=== PATIENT | female | born 1955 | race African-American/Black ===

== ENCOUNTER 2017-10-31 18:55 | Emergency (ER) | payer OTHER ==
[~2017-10-31] VITALS: Ht 157.5 cm; Wt 99.8 kg
[2017-10-31 23:03] VITALS: BP 137/79
== END 2017-10-31 23:07 | disposition home or self-care (01) ==
LOC: EDBD 18:55 → ER 19:00
DX: S30.0XXA Contusion of lower back and pelvis, initial encounter (principal); S09.90XA Unspecified injury of head, initial encounter; E11.9 Type 2 diabetes mellitus without complications; E78.5 Hyperlipidemia, unspecified; I10 Essential (primary) hypertension; E66.01 Morbid (severe) obesity due to excess calories; Z68.41 Body mass index [BMI] 40.0-44.9, adult; V80.010A Animal-rider injured by fall from or being thrown from horse in noncollision accident, initial encounter; Y93.52 Activity, horseback riding; Y99.8 Other external cause status; Y92.89 Other specified places as the place of occurrence of the external cause
CPT/HCPCS: 70450; 73502; 93005

== ENCOUNTER 2021-06-13 10:39 | Inpatient (IN) | payer OTHER ==
[~2021-06-13] VITALS: Ht 154.9 cm; Wt 100.9 kg
[2021-06-13] MEDS ORDERED: ASPirin 81 mg TAB PO ONE ×2 (11:15→20:15)
[2021-06-13 11:55] LABS: Basophils % (auto) 0.4 % (0.0-2.0); Eosinophils # (auto) 0 10 ^3/uL (0-0.8); Neutrophils # (auto) 10.3 10 ^3/uL (1.6-8.6)
[2021-06-13 11:57] LABS: Basophils # (auto) 0.1 10 ^3/uL (0-0.2); Eosinophils % (auto) 0.1 % (0.0-7.0); Hematocrit 31.3 % (36.0-46.0); Hemoglobin 10.3 g/dL (12.2-16.2); Lymphocytes % (auto) 7.9 % (10.0-50.0); Mean Corpuscular Hemoglobin 26.7 pg (28.0-32.0); Mean Corpuscular Hgb Conc. 32.8 g/dL (32.0-36.0); Mean Corpuscular Volume 81.5 fL (80.0-100.0); Monocytes # (auto) 1.3 10 ^3/uL (0-1.3); Monocytes % (auto) 10.2 % (0.0-12.0); Neutrophils % (auto) 81.4 % (37.0-80.0); Red Blood Cells 3.83 10^6/uL (4.0-5.20); Red Cell Distribution Width 18.5 % (11.8-14.3); White Blood Cell 12.6 10^3/uL (4.4-10.8)
[2021-06-13 12:16] LABS: Albumin 2.6 g/dL (3.4-5.0); Calcium 8.8 mg/dL (8.5-10.1); Potassium 4.8 mmol/L (3.5-5.1)
[2021-06-13 12:21] LABS: BUN/Creatinine Ratio 21.4; Bilirubin, Total 0.9 mg/dL (0.2-1.0); Total Protein 8.4 g/dL (6.4-8.2)
[2021-06-13] MEDS ORDERED: MORPHINE SULFATE 4 MG/ML SYR/VIAL IV ONE (13:30)
[2021-06-13] MEDS ORDERED: NITROGLYCERIN 0.4 MG SL TAB SL ONE (13:30)
[2021-06-13] MEDS ORDERED: ONDANSETRON HCL 4 MG/2 ML VIAL IV ONE (13:30)
[2021-06-13] MEDS ORDERED: NITROGLYCERIN 0.4 MG SL TAB SL PRN ×2 (16:30→20:15)
[2021-06-13] MEDS ORDERED: SODIUM CHLORIDE 0.9% 1,000 ML IV SCH (17:30)
[2021-06-13] MEDS ORDERED: ENOXAPARIN SOD 100 MG/1 ML SYRINGE SC ONE (17:30)
[2021-06-13] MEDS: MORPHINE SULFATE INJECTION 2 MG/ML SYRG IV PRN (18:27)
[2021-06-13] MEDS ORDERED: LORazepam 0.5 MG TAB PO PRN (20:15)
[2021-06-13] MEDS ORDERED: levoFLOXacin 500MG 100 ML IV ONE (20:15)
[2021-06-13] MEDS ORDERED: MORPHINE SULFATE INJECTION 2 MG/ML SYRG IV PRN (20:15)
[2021-06-13] MEDS ORDERED: ACETAMINOPHEN 325 MG TAB PO PRN (20:15)
[2021-06-13] MEDS ORDERED: ATORVASTATIN 20 MG TAB PO ONE (20:15)
[2021-06-13] MEDS ORDERED: DEXTROSE (50%) 50ML SYRG IV PRN (20:15)
[2021-06-13] MEDS ORDERED: METOCLOPRAMIDE HCL 5MG/ml INJ 2ml VIAL IV PRN ×2 (20:15→20:30)
[2021-06-13] MEDS ORDERED: FAMOTIDINE (10MG/ML) 2ML VL IV ONE (20:15)
[2021-06-13] MEDS ORDERED: METOPROLOL SUCCINATE XL 50 MG TAB PO ONE (20:15)
[2021-06-13] MEDS ORDERED: metroNIDAZOLE 500MG/100ML 100 ML IV ONE ×2 (20:15→22:45)
[2021-06-13] MEDS ORDERED: DOCUSATE SOD 100 MG CAP PO PRN (20:15)
[2021-06-13 20:50] LABS: INR 1.27 (0.9-1.15); Partial Thromboplastin Time 32.8 sec (23.6-33.0)
[2021-06-13 20:59] VITALS: BP 105/69
[2021-06-13 22:00] VITALS: BP 105/69
[2021-06-13] MEDS: hydrALAZINE HCL 10 MG TAB PO SCH (22:00)
[2021-06-13] MEDS: ISOSORBIDE MONONITRATE 20 MG TAB PO SCH (22:00)
[2021-06-13] MEDS: ACCU-CHEK COMFORT CURVE STRIP VI SCH (22:00)
[2021-06-13] MEDS: InsuLIN REG 1unit/0.01ml Soln (100units/ml) SC SCH (22:00)
[2021-06-14 04:54] VITALS: BP 95/57
[2021-06-14] MEDS: metroNIDAZOLE 500MG/100ML 100 ML IV SCH ×2 (06:00→14:00)
[2021-06-14] MEDS: hydrALAZINE HCL 10 MG TAB PO SCH ×2 (06:00→14:00)
[2021-06-14] MEDS ORDERED: BUMETANIDE 2.5mg/10ml (0.25 mg/ml) INJ IV SCH (06:00)
[2021-06-14 06:36] LABS: Basophils # (auto) 0.1 10 ^3/uL (0-0.2); Basophils % (auto) 0.5 % (0.0-2.0); Eosinophils # (auto) 0 10 ^3/uL (0-0.8); Hemoglobin 9.4 g/dL (12.2-16.2); Mean Corpuscular Hgb Conc. 32.1 g/dL (32.0-36.0); Neutrophils # (auto) 7.8 10 ^3/uL (1.6-8.6)
[2021-06-14 06:39] LABS: Eosinophils % (auto) 0.4 % (0.0-7.0); Hematocrit 29.3 % (36.0-46.0); Lymphocytes # (auto) 1.1 10 ^3/uL (0.4-5.4); Lymphocytes % (auto) 10.8 % (10.0-50.0); Mean Corpuscular Hemoglobin 26.7 pg (28.0-32.0); Monocytes # (auto) 1.2 10 ^3/uL (0-1.3); Neutrophils % (auto) 76.3 % (37.0-80.0); Nucleated Red Blood Cells % 0.1 %; Red Blood Cells 3.53 10^6/uL (4.0-5.20); Red Cell Distribution Width 18.7 % (11.8-14.3); White Blood Cell 10.3 10^3/uL (4.4-10.8)
[2021-06-14 06:47] LABS: Albumin 2.3 g/dL (3.4-5.0); Calcium 8.3 mg/dL (8.5-10.1); Magnesium 3.1 mg/dL (1.6-2.6); Potassium 5.3 mmol/L (3.5-5.1)
[2021-06-14 06:54] LABS: INR 1.3 (0.9-1.15); Partial Thromboplastin Time 35.9 sec (23.6-33.0)
[2021-06-14 06:56] LABS: BUN/Creatinine Ratio 25.2; Bilirubin, Total 0.9 mg/dL (0.2-1.0); Phosphorus 4.5 mg/dL (2.5-4.90); Total Protein 7.3 g/dL (6.4-8.2); Uric Acid 11.3 mg/dL (2.6-6.0)
[2021-06-14] MEDS: InsuLIN REG 1unit/0.01ml Soln (100units/ml) SC SCH ×4 (07:00→22:19)
[2021-06-14] MEDS: ACCU-CHEK COMFORT CURVE STRIP VI SCH ×3 (07:00→17:00)
[2021-06-14] MEDS: MORPHINE SULFATE INJECTION 2 MG/ML SYRG IV PRN ×2 (09:57→19:33)
[2021-06-14] MEDS ORDERED: ASPirin 81 mg TAB PO SCH (10:00)
[2021-06-14] MEDS ORDERED: CLOPIDOGREL BISULFATE 75 MG TAB PO ONE (10:15)
[2021-06-14] MEDS ORDERED: SODIUM CHLORIDE 0.9% 1,000 ML IV SCH (10:15)
[2021-06-14] MEDS: FAMOTIDINE (10MG/ML) 2ML VL IV SCH (10:40)
[2021-06-14] MEDS: levoFLOXacin 500MG 100 ML IV SCH (10:40)
[2021-06-14] MEDS: METOPROLOL SUCCINATE XL 50 MG TAB PO SCH (10:40)
[2021-06-14] MEDS: ISOSORBIDE MONONITRATE 20 MG TAB PO SCH ×2 (10:40→22:00)
[2021-06-14] MEDS ORDERED: IOHEXOL 350 MG/ML 100ML IJ ONE (15:14)
[2021-06-14 17:17] VITALS: BP 96/62
[2021-06-14] MEDS ORDERED: LORazepam 2MG/ML-1ML VIAL IV PRN (17:45)
[2021-06-14 21:35] VITALS: BP 98/58
[2021-06-14] MEDS: GABAPENTIN 100 MG CAP PO SCH (22:00)
[2021-06-14] MEDS: ATORVASTATIN 20 MG TAB PO SCH (22:00)
[2021-06-15] MEDS: MORPHINE SULFATE INJECTION 2 MG/ML SYRG IV PRN ×8 (02:29→15:15)
[2021-06-15] MEDS: hydrALAZINE HCL 10 MG TAB PO SCH ×4 (03:18→22:00)
[2021-06-15 04:52] VITALS: BP 111/63
[2021-06-15] MEDS: ACCU-CHEK COMFORT CURVE STRIP VI SCH ×4 (07:00→21:23)
[2021-06-15] MEDS: InsuLIN REG 1unit/0.01ml Soln (100units/ml) SC SCH ×4 (07:00→21:20)
[2021-06-15] MEDS: GABAPENTIN 100 MG CAP PO SCH ×3 (07:01→21:22)
[2021-06-15 07:21] LABS: Hematocrit 29.6 % (36.0-46.0); Hemoglobin 9.2 g/dL (12.2-16.2); Mean Corpuscular Hemoglobin 25.5 pg (28.0-32.0); Mean Corpuscular Volume 82.3 fL (80.0-100.0); Red Cell Distribution Width 18.7 % (11.8-14.3); White Blood Cell 11.2 10^3/uL (4.4-10.8)
[2021-06-15 07:23] LABS: Basophils % (manual) 0 (0.0-2.0); Blast Cells 0; Metamyelocytes % 0; Promyelocytes % 0; Reactive Lymphocytes 0
[2021-06-15 07:26] LABS: INR 1.32 (0.9-1.15); Partial Thromboplastin Time 30.5 sec (23.6-33.0)
[2021-06-15 07:42] LABS: Band Neutrophils % (manual) 2; Eosinophils % (manual) 1 (0-7); Lymphocytes % (manual) 11 (10.0-50.0); Monocytes % (manual) 12 (0-12); Myelocytes % 3
[2021-06-15 07:44] LABS: Albumin 2.4 g/dL (3.4-5.0); Calcium 8.4 mg/dL (8.5-10.1); Magnesium 2.2 mg/dL (1.6-2.6); Potassium 4.6 mmol/L (3.5-5.1)
[2021-06-15 07:49] LABS: BUN/Creatinine Ratio 28.4; Bilirubin, Total 0.9 mg/dL (0.2-1.0)
[2021-06-15 08:30] VITALS: BP 117/66
[2021-06-15] MEDS: ISOSORBIDE MONONITRATE 20 MG TAB PO SCH ×2 (10:00→22:00)
[2021-06-15] MEDS: METOPROLOL SUCCINATE XL 50 MG TAB PO SCH (10:00)
[2021-06-15] MEDS ORDERED: CLOPIDOGREL BISULFATE 75 MG TAB PO SCH (10:00)
[2021-06-15] MEDS: levoFLOXacin 500MG 100 ML IV SCH (10:19)
[2021-06-15] MEDS: FAMOTIDINE (10MG/ML) 2ML VL IV SCH (10:19)
[2021-06-15 12:30] VITALS: BP 98/68
[2021-06-15] MEDS ORDERED: IOHEXOL 300 MG/ML 100ML BOTTLE IJ ONE (13:18)
[2021-06-15] MEDS: metroNIDAZOLE 500MG/100ML 100 ML IV SCH ×4 (14:45→23:17)
[2021-06-15 17:00] VITALS: BP 100/66
[2021-06-15 20:00] VITALS: BP 97/71
[2021-06-15] MEDS: ALUM & MAG HYDROX-SIMETH LIQ(MAALOX) 30 ML PO PRN (20:26)
[2021-06-15] MEDS: ATORVASTATIN 20 MG TAB PO SCH (21:22)
[2021-06-16] MEDS: MORPHINE SULFATE INJECTION 2 MG/ML SYRG IV PRN (00:22)
[2021-06-16] MEDS: metroNIDAZOLE 500MG/100ML 100 ML IV SCH (00:24)
[2021-06-16] MEDS: InsuLIN REG 1unit/0.01ml Soln (100units/ml) SC SCH ×4 (05:59→22:49)
[2021-06-16] MEDS: hydrALAZINE HCL 10 MG TAB PO SCH ×3 (06:12→22:00)
[2021-06-16] MEDS: GABAPENTIN 100 MG CAP PO SCH ×3 (06:12→22:46)
[2021-06-16] MEDS: ACCU-CHEK COMFORT CURVE STRIP VI SCH ×4 (06:13→22:44)
[2021-06-16 08:13] VITALS: BP 123/67
[2021-06-16] MEDS: ISOSORBIDE MONONITRATE 20 MG TAB PO SCH ×2 (10:18→22:00)
[2021-06-16] MEDS: METOPROLOL SUCCINATE XL 50 MG TAB PO SCH (10:18)
[2021-06-16] MEDS: FAMOTIDINE (10MG/ML) 2ML VL IV SCH (10:18)
[2021-06-16] MEDS: levoFLOXacin 500MG 100 ML IV SCH (10:18)
[2021-06-16 12:00] VITALS: BP 96/64
[2021-06-16 17:00] VITALS: BP 142/90
[2021-06-16] MEDS: HYDROcodone-ACET 5/325MG TAB PO PRN (20:33)
[2021-06-16] MEDS: ALUM & MAG HYDROX-SIMETH LIQ(MAALOX) 30 ML PO PRN (20:46)
[2021-06-16] MEDS: ATORVASTATIN 20 MG TAB PO SCH (22:46)
[2021-06-17 04:32] VITALS: BP 123/69
[2021-06-17] MEDS: HYDROcodone-ACET 5/325MG TAB PO PRN ×2 (05:28→20:49)
[2021-06-17] MEDS: metroNIDAZOLE 500MG/100ML 100 ML IV SCH ×3 (05:49→22:56)
[2021-06-17] MEDS: GABAPENTIN 100 MG CAP PO SCH ×3 (05:50→22:57)
[2021-06-17] MEDS: hydrALAZINE HCL 10 MG TAB PO SCH ×3 (06:00→22:00)
[2021-06-17] MEDS: InsuLIN REG 1unit/0.01ml Soln (100units/ml) SC SCH ×4 (07:00→22:58)
[2021-06-17] MEDS: ACCU-CHEK COMFORT CURVE STRIP VI SCH ×4 (07:02→22:57)
[2021-06-17 08:41] VITALS: BP 121/66
[2021-06-17] MEDS: ISOSORBIDE MONONITRATE 20 MG TAB PO SCH ×2 (10:00→22:00)
[2021-06-17] MEDS: METOPROLOL SUCCINATE XL 50 MG TAB PO SCH (10:00)
[2021-06-17] MEDS: FAMOTIDINE (10MG/ML) 2ML VL IV SCH (10:02)
[2021-06-17] MEDS: levoFLOXacin 500MG 100 ML IV SCH (10:02)
[2021-06-17] MEDS: MORPHINE SULFATE INJECTION 2 MG/ML SYRG IV PRN (10:49)
[2021-06-17 13:00] VITALS: BP 119/68
[2021-06-17] MEDS ORDERED: MIDAZOLAM HCL 2MG/2ML 2ml VIAL (1mg/ml) IV ONE (13:15)
[2021-06-17] MEDS ORDERED: fentaNYL CITRATE 100 MCG/2 ML VL IV ONE (13:15)
[2021-06-17 13:17] LABS: Hepatitis A Ab IgM Negative
[2021-06-17 13:18] LABS: Hepatitis B Core IgM Negative; Hepatitis C Antibody Negative (Negative)
[2021-06-17] MEDS ORDERED: LIDOCAINE 2%HCL (LOCAL ANESTH.) INJ 20ML MDV ONE (13:19)
[2021-06-17] MEDS ORDERED: GELATIN 1 SPONGE SIZE 50 TOP ONE (13:19)
[2021-06-17 16:48] VITALS: BP 119/72
[2021-06-17 19:51] LABS: Basophils # (auto) 0.1 10 ^3/uL (0-0.2); Eosinophils # (auto) 0 10 ^3/uL (0-0.8); Hemoglobin 9.9 g/dL (12.2-16.2); Lymphocytes # (auto) 0.7 10 ^3/uL (0.4-5.4); Lymphocytes % (auto) 5.3 % (10.0-50.0)
[2021-06-17 19:52] LABS: Basophils % (auto) 0.4 % (0.0-2.0); Eosinophils % (auto) 0.2 % (0.0-7.0); Hematocrit 31.6 % (36.0-46.0); Mean Corpuscular Hemoglobin 25.6 pg (28.0-32.0); Mean Corpuscular Hgb Conc. 31.3 g/dL (32.0-36.0); Mean Corpuscular Volume 81.9 fL (80.0-100.0); Monocytes # (auto) 1.3 10 ^3/uL (0-1.3); Monocytes % (auto) 9.4 % (0.0-12.0); Neutrophils # (auto) 11.8 10 ^3/uL (1.6-8.6); Neutrophils % (auto) 84.7 % (37.0-80.0); Red Blood Cells 3.86 10^6/uL (4.0-5.20); Red Cell Distribution Width 19.5 % (11.8-14.3); White Blood Cell 13.9 10^3/uL (4.4-10.8)
[2021-06-17 20:19] LABS: INR 1.44 (0.9-1.15); Partial Thromboplastin Time 30.8 sec (23.6-33.0)
[2021-06-17 22:00] VITALS: BP 116/67
[2021-06-18] VITALS (10 sets, daily range): BP systolic 105–152; BP diastolic 61–89
[2021-06-18] MEDS: GABAPENTIN 100 MG CAP PO SCH ×3 (05:25→22:05)
[2021-06-18] MEDS: metroNIDAZOLE 500MG/100ML 100 ML IV SCH ×3 (05:25→22:06)
[2021-06-18] MEDS: hydrALAZINE HCL 10 MG TAB PO SCH ×4 (05:25→22:08)
[2021-06-18] MEDS: HYDROcodone-ACET 5/325MG TAB PO PRN ×2 (05:29→22:07)
[2021-06-18] MEDS: ACCU-CHEK COMFORT CURVE STRIP VI SCH ×4 (06:38→22:05)
[2021-06-18] MEDS: InsuLIN REG 1unit/0.01ml Soln (100units/ml) SC SCH ×4 (06:40→22:09)
[2021-06-18 06:59] LABS: Basophils # (auto) 0 10 ^3/uL (0-0.2); Eosinophils # (auto) 0 10 ^3/uL (0-0.8); Hemoglobin 9.7 g/dL (12.2-16.2); Mean Corpuscular Volume 81.9 fL (80.0-100.0); Monocytes # (auto) 1.6 10 ^3/uL (0-1.3)
[2021-06-18 07:01] LABS: Basophils % (auto) 0.3 % (0.0-2.0); Eosinophils % (auto) 0.2 % (0.0-7.0); Hematocrit 30.1 % (36.0-46.0); Lymphocytes # (auto) 0.8 10 ^3/uL (0.4-5.4); Lymphocytes % (auto) 6.4 % (10.0-50.0); Mean Corpuscular Hemoglobin 26.5 pg (28.0-32.0); Mean Corpuscular Hgb Conc. 32.3 g/dL (32.0-36.0); Monocytes % (auto) 12.3 % (0.0-12.0); Neutrophils # (auto) 10.4 10 ^3/uL (1.6-8.6); Neutrophils % (auto) 80.8 % (37.0-80.0); Red Blood Cells 3.68 10^6/uL (4.0-5.20); Red Cell Distribution Width 19.1 % (11.8-14.3); White Blood Cell 12.9 10^3/uL (4.4-10.8)
[2021-06-18 07:17] LABS: Calcium 8.4 mg/dL (8.5-10.1)
[2021-06-18] MEDS ORDERED: MIDAZOLAM HCL 5 MG/ML-1ML VIAL IV ONE (09:15)
[2021-06-18] MEDS ORDERED: fentaNYL CITRATE 100 MCG/2 ML VL IV ONE ×2 (09:15→09:30)
[2021-06-18] MEDS ORDERED: LIDOCAINE VISCOUS 2% 15ML UD PO ONE ×2 (09:15→09:30)
[2021-06-18] MEDS ORDERED: diphenhdrAMINE HCL 50 MG/1 ML VL IV ONE (09:15)
[2021-06-18] MEDS ORDERED: fentaNYL CITRATE 100 MCG/2 ML VL ONE (09:20)
[2021-06-18] MEDS ORDERED: MIDAZOLAM HCL 2MG/2ML 2ml VIAL (1mg/ml) ONE (09:20)
[2021-06-18] MEDS ORDERED: LIDOCAINE VISCOUS 2% 15ML UD ONE (09:20)
[2021-06-18] MEDS ORDERED: diphenhdrAMINE HCL 50 MG/1 ML VL ONE (09:21)
[2021-06-18] MEDS: ISOSORBIDE MONONITRATE 20 MG TAB PO SCH ×2 (09:30→22:05)
[2021-06-18] MEDS ORDERED: MIDAZOLAM HCL 2MG/2ML 2ml VIAL (1mg/ml) IV ONE (09:30)
[2021-06-18] MEDS: FAMOTIDINE (10MG/ML) 2ML VL IV SCH (10:26)
[2021-06-18] MEDS: levoFLOXacin 500MG 100 ML IV SCH (10:26)
[2021-06-18] MEDS: METOPROLOL SUCCINATE XL 50 MG TAB PO SCH (15:40)
[2021-06-18] MEDS ORDERED: METO5TAB5 PO (17:07)
[2021-06-18] MEDS ORDERED: BECL40AE11 IN (17:07)
[2021-06-18] MEDS ORDERED: INSUINJ2 SC (17:07)
[2021-06-18] MEDS ORDERED: OME20GT GT (17:07)
[2021-06-18] MEDS ORDERED: ALLO100T PO (17:07)
[2021-06-18] MEDS ORDERED: FERR27TA2 PO (17:07)
[2021-06-18] MEDS ORDERED: ATOR20TA50 PO (17:07)
[2021-06-18] MEDS ORDERED: POTA10TA51 PO (17:07)
[2021-06-18] MEDS ORDERED: COLCPOW2 PO (17:07)
[2021-06-18] MEDS ORDERED: METO25TA93 PO (17:07)
[2021-06-18] MEDS ORDERED: CLOP75TA28 PO (17:07)
[2021-06-18] MEDS ORDERED: ALBU2TAB4 PO (17:07)
[2021-06-18] MEDS ORDERED: INSREG3 IV (17:07)
[2021-06-18] MEDS ORDERED: MONT5CHW33 OR (17:07)
[2021-06-18] MEDS ORDERED: FURO1TAB31 PO (17:07)
[2021-06-19 05:16] VITALS: BP 127/76
[2021-06-19 06:46] LABS: Basophils # (auto) 0 10 ^3/uL (0-0.2); Basophils % (auto) 0.3 % (0.0-2.0); Eosinophils # (auto) 0 10 ^3/uL (0-0.8); Eosinophils % (auto) 0.2 % (0.0-7.0); Hematocrit 30.7 % (36.0-46.0); Hemoglobin 9.6 g/dL (12.2-16.2); Lymphocytes # (auto) 0.8 10 ^3/uL (0.4-5.4); Lymphocytes % (auto) 5.7 % (10.0-50.0); Mean Corpuscular Hemoglobin 25.7 pg (28.0-32.0); Mean Corpuscular Hgb Conc. 31.3 g/dL (32.0-36.0); Monocytes # (auto) 1.7 10 ^3/uL (0-1.3); Monocytes % (auto) 12.4 % (0.0-12.0); Neutrophils # (auto) 11.2 10 ^3/uL (1.6-8.6); Neutrophils % (auto) 81.4 % (37.0-80.0); Red Blood Cells 3.75 10^6/uL (4.0-5.20); Red Cell Distribution Width 18.9 % (11.8-14.3); White Blood Cell 13.8 10^3/uL (4.4-10.8)
[2021-06-19] MEDS: metroNIDAZOLE 500MG/100ML 100 ML IV SCH (06:48)
[2021-06-19] MEDS: hydrALAZINE HCL 10 MG TAB PO SCH (06:48)
[2021-06-19] MEDS: GABAPENTIN 100 MG CAP PO SCH (06:49)
[2021-06-19] MEDS: ACCU-CHEK COMFORT CURVE STRIP VI SCH ×2 (06:49→11:30)
[2021-06-19 07:01] LABS: BUN/Creatinine Ratio 24.2; Calcium 8.3 mg/dL (8.5-10.1); Magnesium 2.2 mg/dL (1.6-2.6)
[2021-06-19] MEDS: InsuLIN REG 1unit/0.01ml Soln (100units/ml) SC SCH ×2 (07:23→12:01)
[2021-06-19 09:00] VITALS: BP 102/71
[2021-06-19] MEDS: levoFLOXacin 500MG 100 ML IV SCH (09:56)
[2021-06-19] MEDS: FAMOTIDINE (10MG/ML) 2ML VL IV SCH (09:56)
[2021-06-19] MEDS: METOPROLOL SUCCINATE XL 50 MG TAB PO SCH (09:57)
[2021-06-19] MEDS: ISOSORBIDE MONONITRATE 20 MG TAB PO SCH (10:00)
[2021-06-19] MEDS: HYDROcodone-ACET 5/325MG TAB PO PRN (10:01)
[2021-06-19 12:02] VITALS: BP 102/71
[2021-06-21] MEDS ORDERED: HYDR-4833 PO ×6 (09:43→09:58)
== END 2021-06-19 12:48 | disposition home or self-care (01) | DRG 435 ==
LOC: EDBD 10:39 → EDUNIT# 10:39 → ER 10:39 → TELE 16:23 → TELE-CENTR 20:15
PROVIDERS: ADMIT Hospitalist; ATTEND Internal Medicine Geriatric Medicine
PROC: B24BZZ4 Ultrasonography of Heart with Aorta, Transesophageal (ICD-10-PCS; principal; 2021-06-18)
PROC: 0FB23ZX Excision of Left Lobe Liver, Percutaneous Approach, Diagnostic (ICD-10-PCS; 2021-06-18)
DX: C25.9 Malignant neoplasm of pancreas, unspecified (principal); I21.4 Non-ST elevation (NSTEMI) myocardial infarction; I50.33 Acute on chronic diastolic (congestive) heart failure; I63.9 Cerebral infarction, unspecified; I13.0 Hypertensive heart and chronic kidney disease with heart failure and stage 1 through stage 4 chronic kidney disease, or unspecified chronic kidney disease; C79.89 Secondary malignant neoplasm of other specified sites; N39.0 Urinary tract infection, site not specified; E87.1 Hypo-osmolality and hyponatremia; Z68.41 Body mass index [BMI] 40.0-44.9, adult; N17.9 Acute kidney failure, unspecified; C78.7 Secondary malignant neoplasm of liver and intrahepatic bile duct; I24.9 Acute ischemic heart disease, unspecified; Z20.822 Contact with and (suspected) exposure to COVID-19; E66.01 Morbid (severe) obesity due to excess calories; K82.8 Other specified diseases of gallbladder; N18.31 Chronic kidney disease, stage 3a; D64.9 Anemia, unspecified; E87.5 Hyperkalemia; K59.00 Constipation, unspecified; E11.22 Type 2 diabetes mellitus with diabetic chronic kidney disease; E78.5 Hyperlipidemia, unspecified; M19.90 Unspecified osteoarthritis, unspecified site; D72.829 Elevated white blood cell count, unspecified; E88.09 Other disorders of plasma-protein metabolism, not elsewhere classified; Z79.02 Long term (current) use of antithrombotics/antiplatelets; Z79.899 Other long term (current) drug therapy; Z80.3 Family history of malignant neoplasm of breast; Z82.49 Family history of ischemic heart disease and other diseases of the circulatory system; Z83.3 Family history of diabetes mellitus; Z86.73 Personal history of transient ischemic attack (TIA), and cerebral infarction without residual deficits; Z87.19 Personal history of other diseases of the digestive system; Z90.710 Acquired absence of both cervix and uterus; Z88.1 Allergy status to other antibiotic agents; Z88.0 Allergy status to penicillin
CPT/HCPCS: 10022; 36415; 70450; 70551; 71045; 71275; 74150; 74178; 76705; 77012; 80048; 80053; 80061; 80074; 82105; 82306; 82378; 82728; 82962; 83036; 83615; 83690; 83735; 83880; 84100; 84443; 84484; 84550; 85007; 85025; 85027; 85379; 85610; 85730; 86141; 86300; 86301; 86304; 87040; 87426; 93005; 93306; 93312; 93886; 93970; 96361; 96365; 96372; 96375; 96376; 99152; 99291; G0378; J1815; J1956; J2250; J2405; J3490

== ENCOUNTER 2021-06-21 12:06 | Emergency (ER) | payer OTHER ==
[~2021-06-21] VITALS: Ht 160 cm; Wt 102.1 kg
[~2021-06-21 12:06] MED LIST: ALBU2TAB4 PO; ALLO100T PO; ATOR20TA50 PO; BECL40AE11 IN; CLOP75TA28 PO; COLCPOW2 PO; FERR27TA2 PO; FURO1TAB31 PO; HYDR-4833 PO; INSREG3 IV; INSUINJ2 SC; METO25TA93 PO; METO5TAB5 PO; MONT5CHW33 OR; OME20GT GT; POTA10TA51 PO
[2021-06-21] MEDS ORDERED: MORPHINE SULFATE 4 MG/ML SYR/VIAL IV ONE (12:30)
[2021-06-21] MEDS ORDERED: ONDANSETRON HCL 4 MG/2 ML VIAL IV ONE (12:30)
[2021-06-21 19:30] VITALS: BP 117/74
[2021-06-21 20:10] LABS: Basophils # (auto) 0.1 10 ^3/uL (0-0.2); Basophils % (auto) 0.5 % (0.0-2.0); Eosinophils # (auto) 0 10 ^3/uL (0-0.8); Eosinophils % (auto) 0.2 % (0.0-7.0); Hematocrit 40.9 % (36.0-46.0); Hemoglobin 12.6 g/dL (12.2-16.2); Lymphocytes # (auto) 1.2 10 ^3/uL (0.4-5.4); Lymphocytes % (auto) 7.1 % (10.0-50.0); Mean Corpuscular Hemoglobin 25.7 pg (28.0-32.0); Mean Corpuscular Hgb Conc. 30.8 g/dL (32.0-36.0); Mean Corpuscular Volume 83.5 fL (80.0-100.0); Monocytes # (auto) 1.3 10 ^3/uL (0-1.3); Monocytes % (auto) 8.1 % (0.0-12.0); Neutrophils # (auto) 13.8 10 ^3/uL (1.6-8.6); Neutrophils % (auto) 84.1 % (37.0-80.0); Nucleated Red Blood Cells % 0.1 %; Red Cell Distribution Width 20.7 % (11.8-14.3); White Blood Cell 16.4 10^3/uL (4.4-10.8)
== END 2021-06-21 20:20 | disposition left against medical advice (07) ==
LOC: ER 12:06 → EDBD 12:06 → EDUNIT# 12:06 → ER 20:20
DX: C25.9 Malignant neoplasm of pancreas, unspecified (principal); R10.9 Unspecified abdominal pain; I10 Essential (primary) hypertension; E11.9 Type 2 diabetes mellitus without complications; E78.5 Hyperlipidemia, unspecified; Z86.73 Personal history of transient ischemic attack (TIA), and cerebral infarction without residual deficits; Z90.710 Acquired absence of both cervix and uterus; Z90.89 Acquired absence of other organs; Z79.4 Long term (current) use of insulin; Z79.899 Other long term (current) drug therapy; Z79.01 Long term (current) use of anticoagulants; Z88.1 Allergy status to other antibiotic agents; Z88.0 Allergy status to penicillin; Z88.8 Allergy status to other drugs, medicaments and biological substances; Z20.822 Contact with and (suspected) exposure to COVID-19
CPT/HCPCS: 36415; 85025; 87426; 93005

== ENCOUNTER 2021-07-13 09:21 | Inpatient (IN) | payer OTHER ==
[~2021-07-13] VITALS: Ht 167.6 cm; Wt 91.6 kg
[~2021-07-13 09:21] MED LIST changes: -HYDR-4833 PO
[2021-07-13] MEDS ORDERED: SODIUM CHLORIDE 0.9% 1,000 ML IV ONE (10:30)
[2021-07-13] MEDS ORDERED: HYDROmorphone HCL 2 MG/ML VL IV ONE ×2 (10:30→15:45)
[2021-07-13] MEDS ORDERED: SODIUM CHLORIDE 0.9% 500 ML IV ONE (10:30)
[2021-07-13] MEDS ORDERED: METOCLOPRAMIDE HCL 5MG/ml INJ 2ml VIAL IV ONE ×2 (10:30→15:45)
[2021-07-13 11:28] LABS: Hemoglobin 10.2 g/dL (12.2-16.2)
[2021-07-13 11:32] LABS: Hematocrit 33.3 % (36.0-46.0); Mean Corpuscular Hemoglobin 27.8 pg (28.0-32.0); Mean Corpuscular Hgb Conc. 30.8 g/dL (32.0-36.0); Mean Corpuscular Volume 90.2 fL (80.0-100.0); Red Blood Cells 3.69 10^6/uL (4.0-5.20); Red Cell Distribution Width 27.4 % (11.8-14.3); White Blood Cell 27.3 10^3/uL (4.4-10.8)
[2021-07-13 11:45] LABS: Basophils % (manual) 0 (0.0-2.0); Blast Cells 0; Eosinophils % (manual) 0 (0-7); Myelocytes % 0; Promyelocytes % 0; Reactive Lymphocytes 0
[2021-07-13 11:57] LABS: Albumin 1.7 g/dL (3.4-5.0); BUN/Creatinine Ratio 35.4; Bilirubin, Total 8.3 mg/dL (0.2-1.0); Calcium 7.8 mg/dL (8.5-10.1)
[2021-07-13 12:13] LABS: Magnesium 4.5 mg/dL (1.6-2.6); Potassium 7.3 mmol/L (3.5-5.1)
[2021-07-13] MEDS ORDERED: ALBUTEROL SULF 2.5 MG/0.5ML(0.5%) NEB SOLN NEB ONE (12:30)
[2021-07-13] MEDS ORDERED: CALCIUM GLUC 1,000mg/50ml-NS 50 ML IV ONE (12:30)
[2021-07-13] MEDS ORDERED: InsuLIN REG 1unit/0.01ml Soln (100units/ml) IV ONE (12:30)
[2021-07-13] MEDS ORDERED: DEXTROSE (50%) 50ML SYRG IV ONE (12:45)
[2021-07-13 13:01] LABS: INR > 8.0 (0.9-1.15); Partial Thromboplastin Time 75.6 sec (23.6-33.0)
[2021-07-13] MEDS ORDERED: SODIUM BICARBONATE 8.4 % INJ 50ML VIAL IV ONE (13:30)
[2021-07-13] MEDS ORDERED: FUROSEMIDE 40 MG/4 ML VIAL IV ONE (13:30)
[2021-07-13 13:50] LABS: Band Neutrophils % (manual) 6; Lymphocytes % (manual) 2 (10.0-50.0); Metamyelocytes % 2; Monocytes % (manual) 7 (0-12)
[2021-07-13] MEDS ORDERED: NOREPINEPHRINE 8 MG/250ML KIT 250 ML IV ONE (14:11)
[2021-07-13] MEDS ORDERED: NOREPINEPHRINE 8 MG/250ML KIT 250 ML IV SCH (14:45)
[2021-07-13 16:15] LABS: BUN/Creatinine Ratio 35.8; Calcium 7.8 mg/dL (8.5-10.1)
[2021-07-13] MEDS ORDERED: PIPERACILLIN-TAZOB 3.375GM 100 ML IV ONE (16:15)
[2021-07-13 16:29] LABS: Potassium 7.1 mmol/L (3.5-5.1)
[2021-07-13 18:40] LABS: Lactic Acid w/Reflex 14.7 mmol/L (0.4-2.0)
[2021-07-13] MEDS ORDERED: ALBUMIN 25% 100 ML IV SCH (19:00)
[2021-07-13] MEDS ORDERED: NITROGLYCERIN 0.4 MG SL TAB SL PRN (19:00)
[2021-07-13] MEDS ORDERED: ALBUMIN 25% 100 ML IV ONE (19:00)
[2021-07-13] MEDS ORDERED: MORPHINE SULFATE INJECTION 2 MG/ML SYRG IV PRN (19:00)
[2021-07-13] MEDS ORDERED: LACTATED RINGER'S 2,000 ML IV ONE (20:00)
[2021-07-13] MEDS ORDERED: MEROPENEM 1GM IVPB 100 ML IV ONE (20:00)
[2021-07-13] MEDS ORDERED: VANCOMYCIN PER PHARMACY 0 MG IV SCH (20:00)
[2021-07-13] MEDS ORDERED: SODIUM ZIRCONIUM CYCL 10 GM PAK PO ONE (20:00)
[2021-07-13] MEDS ORDERED: SODIUM CHLORIDE 0.9% 2,750 ML IV ONE (20:30)
[2021-07-13] MEDS ORDERED: LORazepam 2MG/ML-1ML VIAL IV PRN (20:30)
[2021-07-13] MEDS ORDERED: MORPHINE SULFATE 4 MG/ML SYR/VIAL IV ONE ×2 (20:30→20:45)
[2021-07-13 20:38] VITALS: BP 142/81
[2021-07-13] MEDS ORDERED: MORPHINE SULFATE 4 MG/ML SYR/VIAL ONE (20:44)
[2021-07-13] MEDS ORDERED: VANCOMYCIN 1GM/250ML 250 ML IV ONE (21:00)
[2021-07-14] MEDS ORDERED: ALBUTEROL SULF 2.5 MG/0.5ML(0.5%) NEB SOLN NEB ONE (07:15)
[2021-07-14] MEDS ORDERED: SODIUM BICARBONATE 8.4% INJ 50ML SYRINGE IV ONE (07:15)
[2021-07-14] MEDS ORDERED: InsuLIN REG 1unit/0.01ml Soln (100units/ml) IV ONE (07:15)
[2021-07-14] MEDS ORDERED: FUROSEMIDE 40 MG/4 ML VIAL IV ONE (07:15)
[2021-07-14] MEDS ORDERED: CALCIUM CHL 100MG/ML 1,000 MG in D5W 5% 100 ML IV ONE (07:15)
[2021-07-14] MEDS ORDERED: DEXTROSE (50%) 50ML SYRG IV ONE (07:15)
[2021-07-14] MEDS ORDERED: SODIUM ZIRCONIUM CYCL 10 GM PAK PO ONE (07:15)
[2021-07-14] MEDS ORDERED: LACTATED RINGER'S 1,000 ML IV ONE (07:30)
[2021-07-14] MEDS ORDERED: ATORVASTATIN 20 MG TAB PO SCH (10:00)
[2021-07-14] MEDS ORDERED: metOLazone 5 MG TAB PO SCH (10:00)
[2021-07-14] MEDS ORDERED: CLOPIDOGREL BISULFATE 75 MG TAB PO SCH (10:00)
[2021-07-14] MEDS ORDERED: MEROPENEM 500MG IVPB 50 ML IV SCH (10:00)
[2021-07-14] MEDS ORDERED: ALLOPURINOL 100 MG TAB PO SCH (10:00)
[2021-07-14] MEDS ORDERED: SODIUM ZIRCONIUM CYCL 10 GM PAK PO SCH (14:00)
[2021-07-14] MEDS ORDERED: FUROSEMIDE 40 MG/4 ML VIAL IV SCH (18:00)
== END 2021-07-13 20:43 | DRG 871 ==
LOC: EDBD 09:21 → ER 09:21 → TELE 18:48
PROVIDERS: ADMIT Hospitalist; ATTEND Internal Medicine
PROC: 05H933Z Insertion of Infusion Device into Right Brachial Vein, Percutaneous Approach (ICD-10-PCS; principal; 2021-07-13)
PROC: B54MZZA Ultrasonography of Right Upper Extremity Veins, Guidance (ICD-10-PCS; 2021-07-13)
DX: A41.9 Sepsis, unspecified organism (principal); E43 Unspecified severe protein-calorie malnutrition; I21.A1 Myocardial infarction type 2; I50.33 Acute on chronic diastolic (congestive) heart failure; J96.01 Acute respiratory failure with hypoxia; K76.7 Hepatorenal syndrome; N17.0 Acute kidney failure with tubular necrosis; B17.9 Acute viral hepatitis, unspecified; C25.9 Malignant neoplasm of pancreas, unspecified; I13.0 Hypertensive heart and chronic kidney disease with heart failure and stage 1 through stage 4 chronic kidney disease, or unspecified chronic kidney disease; D68.4 Acquired coagulation factor deficiency; C78.7 Secondary malignant neoplasm of liver and intrahepatic bile duct; C78.00 Secondary malignant neoplasm of unspecified lung; K92.2 Gastrointestinal hemorrhage, unspecified; I46.9 Cardiac arrest, cause unspecified; F41.9 Anxiety disorder, unspecified; M19.90 Unspecified osteoarthritis, unspecified site; R16.0 Hepatomegaly, not elsewhere classified; D64.9 Anemia, unspecified; E11.22 Type 2 diabetes mellitus with diabetic chronic kidney disease; E66.01 Morbid (severe) obesity due to excess calories; E78.5 Hyperlipidemia, unspecified; E83.41 Hypermagnesemia; E11.40 Type 2 diabetes mellitus with diabetic neuropathy, unspecified; E87.5 Hyperkalemia; J45.909 Unspecified asthma, uncomplicated; K82.8 Other specified diseases of gallbladder; N18.32 Chronic kidney disease, stage 3b; R65.20 Severe sepsis without septic shock; Z20.822 Contact with and (suspected) exposure to COVID-19; Z68.32 Body mass index [BMI] 32.0-32.9, adult; Z88.1 Allergy status to other antibiotic agents; Z88.0 Allergy status to penicillin; Z88.8 Allergy status to other drugs, medicaments and biological substances; Z90.710 Acquired absence of both cervix and uterus; Z87.440 Personal history of urinary (tract) infections; Z85.07 Personal history of malignant neoplasm of pancreas; Z85.3 Personal history of malignant neoplasm of breast; Z86.73 Personal history of transient ischemic attack (TIA), and cerebral infarction without residual deficits; Z86.74 Personal history of sudden cardiac arrest
CPT/HCPCS: 36415; 36600; 71045; 74176; 80048; 80053; 82805; 82962; 83605; 83690; 83735; 83880; 84132; 84484; 85007; 85027; 85610; 85730; 86850; 86900; 86901; 87040; 87426; 93005; 94640; 96361; 96365; 96375; 99291; G0378; J1815; J2185; J2543